=== PATIENT | male | born 1975 | race Caucasian/White ===

== ENCOUNTER 2024-10-20 16:46 | Emergency (ER) | payer SELFPAY ==
[2024-10-20 17:09] VITALS: BP 130/86; PULSE 73; RESP 15; TEMP 36.8; O2SAT 95; BMI 29.5
[2024-10-20 19:12] VITALS: BP 128/83; PULSE 72; RESP 16; O2SAT 96
--- NOTE | 2024-10-20 19:48 | W.ED.SKABFB ---
HPI - Skin/Abscess/Foreign Bdy General: Chief complaint: Skin/Abscess/Foreign Body Stated complaint: rash on abdomen Time Seen by Provider: 10/20/24 19:15 History of Present Illness: 48-year-old male patient with a week of rash. Rash is worse on the abdomen, and around his waistline. It is now spread up to his upper back, and down his posterior thighs. It itches mainly. Sometimes it munoz. He was prescribed triamcinolone at urgent care 4 days ago, with minimal improvement. He has not run a fever. No changes in medication, detergents, foods, etc. Related Data Previous Rx's ?Medication ?Instructions ?Recorded doxycycline hyclate 100 mg tablet 100 mg PO BID 7 days #14 tabs 10/20/24 fluconazole 100 mg tablet 100 mg PO DAILY 14 days #14 tabs 10/20/24 (Diflucan) methylprednisolone 4 mg tablets in See Rx Instructions PO .COMPLEX 10/20/24 a dose pack (Medrol (Chacho)) #21 ea Allergies Allergy/AdvReac Type Severity Reaction Status Date / Time No Known Allergies Allergy Verified 10/20/24 17:12 Physical Exam Const: COMMON NORMALS: no acute distress GENERAL APPEARANCE: not ill appearing ORIENTATION/CONSCIOUSNESS: Yes awake, Yes oriented to person, Yes oriented to place and Yes oriented to time HENMT: COMMON NORMALS: normocephalic HEAD & SCALP: normocephalic FACE & SINUS: normal facial exam Eye: COMMON NORMALS: Equal, round and reactive pupils present and EOMs intact bilaterally PUPIL: Yes Equal, round and reactive pupils present Neck/C-Spine: GENERAL: Yes trachea midline Resp: COMMON NORMALS: normal respiratory effort, No retractions and No use of accessory muscles Neuro: SENSORIUM/ORIENTATION: Yes oriented to person, Yes oriented to place and Yes oriented to time Skin: NARRATIVE SKIN EXAM: Exam reveals coalescing plaques across the waistline. There are satellite lesions. There is follicular rash up the back, and to the thighs. Course Vital Signs: Vital signs: Vital Signs Temperature 98.2 F 10/20/24 17:09 Pulse Rate 77 10/20/24 20:21 Respiratory Rate 16 10/20/24 19:12 Blood Pressure 123/89 10/20/24 20:21 Pulse Oximetry 94 10/20/24 20:21 Oxygen Delivery Me thod Room Air 10/20/24 19:12 MDM - Skin/Abscess/Foreign Bdy Medicial Decision Making Patient will be treated for candidal skin infection, with overlying folliculitis. Medrol Dosepak for the itching. Case management to make him a follow-up appointment for skin check in a few days. Return for worsening. No radiology studies performed this visit Discharge Plan Discharge Patient Disposition: Home Clinical Impression: Candidal dermatitis, Folliculitis Condition: Stable Prescriptions: New doxycycline hyclate 100 mg tablet 100 mg PO BID 7 Days Qty: 14 0RF fluconazole [Diflucan] 100 mg tablet 100 mg PO DAILY 14 Days Qty: 14 0RF methylprednisolone [Medrol (Chacho)] 4 mg tablets,dose pack See Rx Instructions PO .COMPLEX Qty: 21 0RF Rx Instructions: orally per package directions Discharge Orders: Discharge ED (Routine); Ordered 10/20/24 Ordered By: Cristiano Ojeda Patient Instructions: Folliculitis (ED), Skin Yeast Infection (ED), Opioid Safety, Pain Management Activity Restrictions/Additional Instructions: Medication as directed. Case management will give you a call regarding a follow-up appointment. Return for worsening symptoms despite treatment. Print Language: Mexican Coding Level of Care Code ED Airport Tower Controller for Yaneth Alba
[2024-10-20] MEDS: doxycycline 100 mg Tablet PO (20:17)
[2024-10-20] MEDS: fluconazole 100 mg Tablet PO (20:17)
[2024-10-20] MEDS: predniSONE 20 mg Tablet 40 MG PO (20:18)
[2024-10-20 20:21] VITALS: BP 123/89; PULSE 77; O2SAT 94
--- NOTE | 2024-10-23 08:12 | DCPLANNER ---
Message sent to Clinics to establish a PCP
== END 2024-10-20 20:22 | disposition home or self-care (01) ==
PROVIDERS: Emergency Provider Emergency Medicine
DX: L25.9 Unspecified contact dermatitis, unspecified cause (principal); L73.9 Follicular disorder, unspecified
CPT/HCPCS: 99283; J7512

== ENCOUNTER 2024-12-23 06:16 | Day surgery (SDC) | payer MEDICAID, SELFPAY ==
[2024-12-23] VITALS (11 sets, daily range): BP systolic 104–118; BP diastolic 57–78; PULSE 62–82; RESP 10–24; TEMP 36.1–36.8; O2SAT 95–100; BMI 28.1
--- NOTE | 2024-12-23 06:32 | W.PM.OPSUD ---
Surgery/Procedure H&P Update DATE OF PROCEDURE: December 23, 2024 DATE H&P PERFORMED: 12/18/24 H&P UPDATE INFORMATION: I have reviewed H&P completed within last 30 days, I have examined patient prior to procedure, No changes to prior documentation, H&P is in [facility] EMR on date indicated and Risks and benefits of the procedure reviewed PLANNED PROCEDURE: Operation Date: 12/23/24 08:00 Proposed Procedures p excision posterior neck mass(Not Applicable) - Po Espinoza MD
--- NOTE | 2024-12-23 06:45 | ECG_ITS ---
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 Measurements Intervals [place] Rate: 69 P: 4 CO: 149 QRS: 9 QRSD: 89 T: 51 QT: 389 QTc: 418 Interpretive Statements SINUS RHYTHM WITH OCCASIONAL VENTRICULAR PREMATURE COMPLEXES WARNING: DATA QUALITY MAY AFFECT INTERPRETATION No previous ECG available for comparison Electronically Signed On 12-23-2024 15:19:49 CDT by Juvenal Carlisle M.D. [email or web address]
[2024-12-23] MEDS: sodium chloride 0.9% 1,000 ML 30 ML IV (07:08)
--- NOTE | 2024-12-23 07:19 | ANES.PREANE2 ---
Pre-Anesthetic Assessment Height/Weight: Height 1.73 m Weight 83.915 kg Temp Pulse Resp BP Pulse Ox O2 Del Method 97.8 F 62 18 118/68 99 Room Air 12/23/24 06:39 12/23/24 06:39 12/23/24 06:39 12/23/24 06:39 12/23/24 06:39 12/23/24 06:39 Operation Date: 12/23/24 08:00 Proposed Procedures p excision posterior neck mass(Not Applicable) - Po Espinoza MD Last intake: Intake Last Liquid Date 12/22/24 Last Liquid Time 22:00 Last Solid Date 12/22/24 Last Solid Time 19:00 Social No alcohol and No tobacco Exam alert, oriented x 3 and regular rate & rhythm (frequent non conducted beat) Airway Submandibular: within normal limits Cervical ROM: within normal limits Mallampati: Class II Metabolic Hyperlipidemia Anesthetic Plan ASA status: 2 Anesthesia: Choice Medications/Allergies Home Medications ?Medication ?Instructions ?Recorded ?Confirmed ?Last Taken ?Type atorvastatin 20 mg tablet (Lipitor) 20 mg PO DAILY 12/18/24 12/19/24 12/22/24 History Allergies Allergy/AdvReac Type Severity Reaction Status Date / Time No Known Allergies Allergy Verified 12/19/24 14:14 Current Medications Generic Name Dose Route Start Last Admin Trade Name Asaf PRN Reason Stop Dose Admin Sodium Chloride 1,000 mls @ 30 mls/hr 12/23/24 06:30 12/23/24 07:08 Sodium Chloride 0.9% IV 12/24/24 06:29 30 mls/hr .Q24H BRAYAN Administration PFSH Anesthesia Social History Smoking and tobacco/nicotine status: former use of tobacco/nicotine
[2024-12-23] MEDS: ceFAZolin 2,000 mg SDV 2000 MG IVP (08:17)
[2024-12-23] MEDS: BUPivacaine 0.25% INJ 10 mL INJECTION (09:19)
[2024-12-23] MEDS: lidocaine-epi 1% 20 mL INJ 10 ML INJECTION (09:19)
--- NOTE | 2024-12-23 09:42 | PM.OP ---
Operative Report Date of procedure: December 23, 2024 Pre-op diagnosis: Posterior neck mass Post-op diagnosis: Same Post-op findings: There was a mass of the base of the posterior neck localized in the subcutaneous tissue measuring 8 x 4 x 2 cm. The mass was loculated composed by fat and fibrosed tissue Procedure done: Excision of posterior neck mass, subcutaneous Specimens removed/disposition: Posterior neck mass Surgeon: Po Espinoza MD Haul Truck Driver: INES OR Staff Complications: None apparent Brief History: 49-year-old male who presents to my office with a posterior neck mass, imaging shows possible benign lipomas. After discussion of all risk benefits documented. Note we decided proceed to the OR for excision Procedure: Patient was brought into the OR. General anesthesia was given. He was transferred to the OR bed in the prone position. The neck was prepped and draped in the usual sterile fashion. A timeout was conducted. 16 [place] incision was made overlying the area area of the subcutaneous lesion. Incision was deepened into subcutaneous tissue with electrocautery. At this point I identified the lesion which was composed of multiple separate lipomatous lesions with fibrous tissue in the middle. The lesion was circumferentially dissected from the surrounding healthy tissue and excised with electrocautery from the base. The lesion went down all the way to the superficial fascia. Once the lesion was completely excised, which had to be done in multiple pieces due to the septations, I then proceeded to explore the wound and no residual lesion was noted. Hemostasis was achieved. The wound was irrigated. Local anesthesia was infiltrated. I then closed the wound in layers using #0 Vicryl for the deep tissue, #3-0 Vicryl for the subcutaneous tissue #4 Monocryl for the skin. Dermabond and a compressive dressing was applied. At the end of the procedure all counts were correct, the patient tolerated well the procedure and was transferred to the PACU in stable condition.
--- NOTE | 2024-12-23 12:34 | ANE.PACU2 ---
Inpatient post-anesthesia follow up: Airway intact: Yes Vital signs: Temperature 98.3 F Pulse Rate 69 Respiratory Rate 18 Blood Pressure 104/69 Pulse Oximetry 98 Oxygen Delivery Me thod Room Air Oxygen Flow Rate 8 Fraction of Inspir ed Oxygen Hydration adequate: Yes Nausea and vomiting: No Pain level: controlled Mental status: Baseline
== END 2024-12-23 10:57 | disposition home or self-care (01) ==
PROVIDERS: PCP Family Medicine; Visit Provider Surgery
PROC: (CPT 21554; principal; 2024-12-23 07:50)
DX: D17.0 Benign lipomatous neoplasm of skin and subcutaneous tissue of head, face and neck (principal); E78.5 Hyperlipidemia, unspecified; Z79.899 Other long term (current) drug therapy; Z87.891 Personal history of nicotine dependence
CPT/HCPCS: 21554; 88307; 93005; J0131; J0690; J1100; J1885; J2250; J2405; J2704; J3010; J3490; J7030; J9999